=== PATIENT | female | born 1960 | race Two or more races ===

== ENCOUNTER 2025-10-28 14:10 | Emergency (ER) | payer MEDICAID ==
[~2025-10-28] VITALS: Ht 172.7 cm; Wt 71.3 kg
[2025-10-28] MEDS ORDERED: LISI20TA56 PO (15:11)
[2025-10-28] MEDS ORDERED: METF-929 PO (15:11)
--- NOTE | 2025-10-28 15:11 | ED.PDOC ---
History of Present Illness HPI Comments 65-year-old female who presents to the ED for chief complaint of medication refill. The patient states she has a history of high blood pressure and diabetes and states five days prior she ran out for blood pressure medication due to insurance issues. Patient states since he has been having associated headache and dizziness And came today due to persistence of her symptoms. Patient in the ED has noted blood pressure of 198/97 with a otherwise stable vitals. The patient otherwise in the ED is alert and oriented x4 and no noted changes in gait patient notes speech are noted. Chief Complaint: Medication refill Time Seen by MD: 15:08 Reviewed Notes: Medications, Allergies Home Meds Active Scripts Metformin HCl (Metformin Hydrochloride) 1,000 Mg Tab, 1000 MG PO BID for 30 Days, #60 TAB 0 Refills Prov:PATSY GERMAN [employer]DNANCE [employer]IFIC[employer] HELPER 10/28/25 Lisinopril (Lisinopril) 20 Mg Tab, 1 TAB PO DAILY for 30 Days, #30 TAB 0 Refills Prov:PATSY GERMAN [employer]DNANCE [employer] HELPER 10/28/25 Information Source: Patient Mode of Arrival: Ambulatory Past Medical History PAST MEDICAL HISTORY: DM, HTN Surgical History: Denies all surgeries APPARATUS CLEANER History: Denies all APPARATUS CLEANER Hx Family History Family History: Reviewed,noncontributory to illness Constitutional: denies: chills, diaphoresis, fatigue, fever, malaise, sweats, weakness, others EENTM: denies: blurred vision, double vision, ear bleeding, ear discharge, ear drainage, ear pain, ear ringing, eye pain, eye redness, hearing loss, mouth pain, mouth swelling, nasal discharge, nose bleeding, nose congestion, nose pain, photophobia, tearing, throat pain, throat swelling, voice changes, others Respiratory: denies: cough, hemoptysis, orthopnea, SOB at rest, shortness of breath, SOB with excertion, stridor, wheezing, others Cardiovascular: denies: chest pain, dizzy spells, diaphoresis, Dyspnea on exertion, edema, irregular heart beat, left arm pain, lightheadedness, palpitations, PND, syncope, others Gastrointestinal: denies: abdomen distended, abdominal pain, blood streaked bowels, constipated, diarrhea, dysphagia, difficulty swallowing, hematemesis, melena, nausea, poor appetite, poor fluid intake, rectal bleeding, rectal pain, vomiting, others Genitourinary: denies: abnormal vagina bleeding, burning, dyspareunia, dysuria, flank pain, frequency, hematuria, incontinence, pain, , vagina discharge, urgency, others Neurological: reports: dizziness, headache; denies: fainting, left sided numbness, left sided weakness, numbness, paresthesia, pre-existing deficit, right sided numbness, right sided weakness, seizure, speech problems, tingling, tremors, weakness, others Musculoskeletal: denies: back pain, gout, joint pain, joint swelling, muscle pain, muscle stiffness, neck pain, others Integumetry: denies: bruises, change in color, change in hair/nails, dryness, laceration, lesions, lumps, rash, wounds, others Allergic/Immunocompromised: denies: Difficulty Healing, Frequent Infections, Hives, Itching, others Hematologic/Lymphatic: denies: anemia, blood clots, easy bleeding, easy bruising, swollen glands, others Endocrine: denies: excessive hunger, excessive sweating, excessive thirst, excessive urination, flushing, intolerance to cold, intolerance to heat, unexplained weight gain, unexplained weight loss, others Psychiatric: denies: anxiety, bipolar disorder, depression, hopeless, panic disorder, schizophrenia, sleepless, suicidal, others All Other Systems: Reviewed and Negative Physical Exam General Appearance: No Apparent Distress, Normal HEENT: Normal ENT Inspection, Pharynx Normal, TMs Normal Neck: Full Range of Motion, Non-Tender, Normal, Normal Inspection Respiratory: Chest Non-Tender, Lungs Clear, No Accessory Muscle Use, No Respiratory Distress, Normal Breath Sounds Cardiovascular: No Edema, No JVD, No Murmur, No Gallop, Normal Peripheral Pulses, Regular Rate/Rhythm Breast Exam: Deferred Gastrointestinal: No Organomegaly, Non Tender, No Pulsatile Mass, Normal Bowel Sounds, Soft Genitalia: Deferred Pelvic: Deferred Rectal: Deferred Extremities: No calf tenderness, Normal capillary refill, Normal inspection, Normal range of motion, Non-tender, No pedal edema Musculoskeletal : Apperance: Normal Neurologic: Other (Pronator drift negative) Cerebellar Function: Normal Reflexes: Normal Skin: Dry, Normal Color, Warm Lymphatic: No Adenopathy Was a procedure done? Was a procedure done?: No Differential Dx Considerations may include: Medication refill, hypertensive urgency, X-Ray, Labs, Meds, VS Vital Signs Date Time Temp Pulse Resp B/P (MAP) Pulse Ox O2 Delivery O2 Flow Rate FiO2 10/28/25 16:18 98.1 86 18 167/86 (113) 97 98.1 10/28/25 16:17 167/86 10/28/25 15:42 170/93 (118) 10/28/25 15:20 89 18 98 Room Air* 0 21 10/28/25 15:18 198/97 10/28/25 14:57 Room Air 10/28/25 14:57 97.9 89 18 198/97 (130) 98 97.9 10/28/25 14:16 98.0 98 20 193/93 95 98.0 Lab Test 10/28/25 15:39 Range/Units POC Glucose 258 H 70-106 mg/dl Current Medications Medications (Trade) Dose Ordered Sig/Senthil Route Start Time Stop Time Status Last Admin Clonidine HCl (Catapres Tablet) 0.1 mg ONCE ONCE PO 10/28/25 15:15 10/28/25 15:16 DC 10/28/25 15:18 X-Ray, Labs, Meds, VS Comment Patient arrives alert and oriented, ABC's intact, afebrile, vital signs stable, saturating well in room air Diagnostic imaging ordered by me and results interpreted by radiology : Labs in the ED showed (pertinent+ and then pertinent-) Patient was given: Clonidine 0.1 mg once. Tolerated medications with no adverse reaction. Additional MDM Review of External, Non-ED records: External records reviewed. Discussion with independent historian (EMS, family) history obtained from the patient/parents (if applicable) at bedside Chronic conditions affecting care: None Social determinants of health affecting care: None Consideration of admission (observation or admission): I considered escalation of care to admission for this patient, however given the reassuring workup, the patient is safe for outpatient management. Discussion with the Radiology: No Tests considered but not performed: Prescription medication considered but not given: 12 lead EKG interpretation: Time of 1ST Reevaluation: 15:40 Reevaluation 1ST: Unchanged Patient Education/Counseling: Diagnosis, Treatment Family Education/Counseling: No Family Present SEPSIS Sepsis Screen Date sepsis recognized/suspect: Oct 28, 2025 Time Sepsis recognized/suspect: 1501 Recent Procedure: No On Antibiotic Therapy: No Respiratory Rate >20: No Heart Rate >90: No Temp<36 C (96.8 F) or >38.3 C: No SBP <90 or MAP <65 mmHG: No New Acute Mental Status Change: No Is the patient on CPAP, BIPAP,: No Vital Signs Date Time Temp Pulse Resp B/P (MAP) Pulse Ox O2 Delivery O2 Flow Rate FiO2 10/28/25 16:18 98.1 86 18 167/86 (113) 97 98.1 10/28/25 16:17 167/86 10/28/25 15:42 170/93 (118) 10/28/25 15:20 89 18 98 Room Air* 0 21 10/28/25 15:18 198/97 10/28/25 14:57 Room Air 10/28/25 14:57 97.9 89 18 198/97 (130) 98 97.9 10/28/25 14:16 98.0 98 20 193/93 95 98.0 Medications Medications Dose Ordered Sig/Senthil Route Start Time Stop Time Status Last Admin Dose Admin Clonidine HCl 0.1 mg ONCE ONCE PO 10/28/25 15:15 10/28/25 15:16 DC 10/28/25 15:18 Departure 1 Departure Time of Disposition: 16:25 Impression: Primary Impression: Medication refill Additional Impression: Hypertension Disposition: 01 HOME / SELF CARE / HOMELESS Condition: Stable e-Prescriptions Metformin HCl (Metformin Hydrochloride) 1,000 Mg Tab 1000 MG PO BID for 30 Days, #60 TAB 0 Refills Prov: PATSY GERMAN NP 10/28/25 Lisinopril (Lisinopril) 20 Mg Tab 1 TAB PO DAILY for 30 Days, #30 TAB 0 Refills Prov: PATSY GERMAN NP 10/28/25 Discharged With: Self Critical Care Note Critical Care Time?: No Stability Stability form required: No Heart Score Heart Score: Heart Score Response (Comments) Value History N/A 0 EKG N/A 0 Age N/A 0 Risk Factors N/A 0 Troponin N/A 0 Total 0 I personally scribed for PATSY GERMAN NP ([email or web address]) on 10/28/25 at 15:11. Electronically submitted by Katharine Preston ([email or web address]). PATSY GERMAN NP Oct 28, 2025 15:11
[2025-10-28 15:20] VITALS: PULSE 89; RESP 18; O2SAT 98
[2025-10-28 16:18] VITALS: BP 167/86; PULSE 86; RESP 18; TEMP 98.1; O2SAT 97
[2025-10-28] MEDS ORDERED: CETI5TAB6 PO (16:39)
== END 2025-10-28 16:33 | disposition home or self-care (01) ==
LOC: ER 14:14
DX: I10 Essential (primary) hypertension (principal); E11.9 Type 2 diabetes mellitus without complications; Z76.0 Encounter for issue of repeat prescription; Z79.84 Long term (current) use of oral hypoglycemic drugs; Z79.899 Other long term (current) drug therapy
CPT/HCPCS: 82947; 82962